=== PATIENT | female | born 1965 | race Caucasian/White ===

== ENCOUNTER 2016-12-09 13:07 | Emergency (ER) | payer OTHER ==
[~2016-12-09] VITALS: Ht 172.7 cm; Wt 76.0 kg
[~2016-12-09 13:07] MED LIST: BUPR150T3 PO; FROV2.5T3 PO; LORA-474 PO; PHEN37.5 PO; ROSU5 PO; SYNT25TA PO; TOPI100T PO; VALT1TAB26 PO
[2016-12-09 13:13] VITALS: BP 132/85; PULSE 76; RESP 18; TEMP 97.6; O2SAT 97
[2016-12-09] MEDS ORDERED: ESTR1TAB PO (13:19)
[2016-12-09] MEDS ORDERED: progesterone PO (13:19)
[2016-12-09] MEDS ORDERED: ROSU1TAB8 PO (13:19)
[2016-12-09] MEDS ORDERED: BIOTCAP PO (13:19)
[2016-12-09] MEDS ORDERED: LORA-474 PO (13:19)
[2016-12-09] MEDS ORDERED: phentermine PO (13:19)
--- NOTE | 2016-12-09 14:14 | PD ---
HPI Chief Complaint: Fall Time Seen by Provider: 13:40 Travel History International Travel<30 days: No Contact w/Intl Traveler<30days: No Traveled to known affect area: No History of Present Illness HPI 51-year-old female presents to the emergency room for evaluation of low back pain and right wrist pain after slip and fall last night. Patient states she has concrete floors and stepped out of the shower, slipping and falling down. She does not remember exactly how she fell or what she landed on but denies hitting her head or loss of consciousness. States she had pain last night for which she took Robaxin and Vicodin. Woke up with worsening pain and figured that something was wrong. She denies lower extremity paresthesias, saddle anesthesia, or loss of bowel or bladder control. Chills and has right wrist pain especially on the dorsal side worse with range of motion. Reports associated swelling. PFSH Past Medical History Anxiety: Yes Cancer: No Cardiovascular Problems: No High Cholesterol: Yes Diabetes: No Diminished Hearing: No Endocrine: No Genitourinary: No Hepatitis: No Hiatal Hernia: No Immune Disorder: No Inguinal Hernia: Yes (x2) Musculoskeletal: No Neurologic: Yes (MIGRAINES) Psychiatric: No Reproductive: No Respiratory: No Thyroid Disease: No (ON SYNTHROID FOR HAIR LOSS) Tetanus Vaccination: Unknown Influenza Vaccination: Yes ?: Not Past Surgical History Abdominal Surgery: Yes (hernia x2) AICD: No Body Medical Devices: BREASTS Genitourinary Surgery: Yes (BLADDER SUSP.) Gynecologic Surgery: Yes (TUBAL LIG., ENDOMETRIAL ABLATION) Joint Replacement: No Pacemaker: No Other Surgery: Yes (LIPOSUCTION, BREAST AUGMENTATION (removed)) Social History Alcohol Use: Yes (OCC) Tobacco Use: No Substance Use: No Allergies-Medications (Allergen,Severity, Reaction): Coded Allergies: No Known Allergies (Verified , 05/23/12) Reported Meds & Prescriptions Reported Meds & Active Scripts Active Reported Ativan (Lorazepam) 1 Mg Tab 1 Mg PO Q6H PRN [phentermine] 37.5 Mg PO DAILY Biotin 5 Mg Cap 5 Mg PO [progesterone] 20 Mg PO DAILY Rosuvastatin (Rosuvastatin Calcium) 20 Mg Tab 20 Mg PO DAILY Estradiol 1 Mg Tab 1 Mg PO DAILY Review of Systems Except as stated in HPI: all other systems reviewed are Neg Physical Exam Narrative GENERAL: Well-nourished, well-developed female in no acute distress. Afebrile. Ambulatory. SKIN: Focused skin assessment warm/dry. No erythema or ecchymosis. HEAD: Normocephalic. EYES: No scleral icterus. No injection or drainage. NECK: Supple, trachea midline. No JVD or lymphadenopathy. CARDIOVASCULAR: Regular rate and rhythm without murmurs, gallops, or rubs. RESPIRATORY: Breath sounds equal bilaterally. No accessory muscle use. MUSCULOSKELETAL: No cyanosis. Very mild edema of the right wrist. 2+ radial pulse. Limited range of motion of the wrist secondary to pain. Full range motion of the hand. Distal sensation intact. BACK: No significant midline tenderness. No obvious deformity. No CVA tenderness. Data Data Last Documented VS Vital Signs Date Time Temp Pulse Resp B/P (MAP) Pulse Ox O2 Delivery O2 Flow Rate FiO2 12/09/16 13:13 97.6 76 18 132/85 (101) 97 Orders Orders Spine, Lumbar - Ltd (Ap & Lat) (12/09/16 ) Wrist, Complete ([id number]) (12/09/16 ) Acetamin-Hydrocod 325-5 Mg ([place] 5-325 (12/09/16 15:15) MDM Medical Decision Making Medical Screen Exam Complete: Yes Emergency Medical Condition: Yes Medical Record Reviewed: Yes Differential Diagnosis Fracture, strain, sprain, contusion, spasm, dislocation Narrative Course 51-year-old female presents to the emergency room for evaluation of low back pain and right wrist pain after mechanical fall on a concrete floor last night. Denies hitting her head or loss of consciousness. Right wrist is tender to palpation on the dorsal side. Limited range of motion secondary to pain. There is very mild edema. 2+ radial pulse. Full range of motion of hand. X- ray of the right wrist shows possible avulsion fracture. No focal neurological deficits or midline tenderness of the spine. There is tenderness to palpation of the right paraspinous musculature. Patient has been ambulatory without significant difficulty. She is ambulating in the ER. Physical exam is reassuring. No step-off deformity. X-ray of the spine is negative for acute bony abnormality, degenerative disc changes. Patient is given Lortab in the emergency room. She was placed in volar wrist splint and told to follow-up with her primary care physician or return for worsening symptoms. She understands and agrees to plan. Diagnosis Primary Impression: Right wrist sprain Qualified Codes: S63.501A - Unspecified sprain of right wrist, initial encounter Additional Impressions: Low back strain Qualified Codes: S39.012A - Strain of muscle, fascia and tendon of lower back , initial encounter Hand fracture Qualified Codes: S62.91XA - Unspecified fracture of right wrist and hand, initial encounter for closed fracture Referrals: Orthopedist Primary Care Physician Additional Instructions: Rest and drink plenty of fluids. Take Robaxin as directed, as needed for pain. Take Lortab with food as directed, as needed for pain. Apply ice to the affected area for 20 minutes at a time, as needed for pain and swelling. Follow-up with orthopedist. Return to the emergency room for worsening symptoms. Med/Other Pt SpecificInfo: Prescription(s) given Disposition: 01 DISCHARGE HOME Condition: Stable Steph Sarmiento Dec 09, 2016 14:14
[2016-12-09] MEDS ORDERED: ACETAMINOPHEN/HYDROcodone 325 MG/5 MG TAB PO ONE (15:15)
--- NOTE | 2016-12-09 15:46 | RADRPT ---
EXAM DATE/TIME: 12/09/2016 14:18 [facility] COMPARISON: No previous studies available for comparison. INDICATIONS : Low back pain after falling yesterday. MEDICAL HISTORY : None. SURGICAL HISTORY : None. ENCOUNTER: Initial ACUITY: 1 day PAIN SCORE: 9/10 LOCATION: Bilateral back FINDINGS: There is anterolisthesis likely related to facet arthritis at L4-L5. There is multilevel facet arthri tis maximal at L4-L5. There is no evidence of acute fracture. Bony mineralization is normal. CONCLUSION: 1. Moderate degenerative changes as described above. There is no evidence of acute fracture. Carmelo Brown MD on December 09, 2016 at 15:44 Board Certified Radiologist. This report was verified electronically.
--- NOTE | 2016-12-09 15:47 | RADRPT ---
EXAM DATE/TIME: 12/09/2016 14:30 [facility] COMPARISON: No previous studies available for comparison. INDICATIONS : Right wrist pain after falling. MEDICAL HISTORY : None. SURGICAL HISTORY : None. ENCOUNTER: Initial ACUITY: 1 day PAIN SCORE: 8/10 LOCATION: Right upper extremity FINDINGS: There is possible folded fracture dorsally. This is only seen on the lateral view. Bony mineralizatio n is normal. CONCLUSION: 1. Possible dorsal avulsion fracture. Carmelo Brown MD on December 09, 2016 at 15:45 Board Certified Radiologist. This report was verified electronically.
[2016-12-09] MEDS ORDERED: ROBA750T PO (15:55)
[2016-12-09] MEDS ORDERED: HYDR-3533 PO (15:55)
[2016-12-11] MEDS ORDERED: PROG200C PO (12:25)
[2016-12-11] MEDS ORDERED: PHEN37.54 PO (12:26)
== END 2016-12-09 16:49 | disposition home or self-care (01) ==
LOC: PHEFT 13:07
DX: S39.012A Strain of muscle, fascia and tendon of lower back, initial encounter (principal); S63.501A Unspecified sprain of right wrist, initial encounter; W01.0XXA Fall on same level from slipping, tripping and stumbling without subsequent striking against object, initial encounter; F41.9 Anxiety disorder, unspecified; E78.5 Hyperlipidemia, unspecified
CPT/HCPCS: 72100; 73110; 99284; L3908